=== PATIENT | male | born 1995 | race Caucasian/White ===

== ENCOUNTER 2020-05-28 21:25 | Emergency (ER) | payer OTHER ==
[~2020-05-28] VITALS: Ht 172.7 cm; Wt 95.3 kg
[2020-05-28 21:29] VITALS: BP 128/68; Ht 172.7 cm; Wt 95.3 kg
== END 2020-05-28 22:08 ==
LOC: ED 21:25
DX: Z02.89 Encounter for other administrative examinations (principal)